=== PATIENT | male | born 1940 | race Caucasian/White ===

== ENCOUNTER 2022-07-16 17:51 | Inpatient (IN) | payer MEDICARE ==
[~2022-07-16] VITALS: Ht 167.6 cm; Wt 77.1 kg
[2022-07-16] MEDS ORDERED: BLOOD SUGAR DIAGNOSTIC 1 EACH STRIP IN ONE (20:30)
[2022-07-16] MEDS ORDERED: MAG HYDROX/AL HYDROX/SIMETH 30 ML UDC PO PRN (20:30)
[2022-07-16] MEDS ORDERED: MAGNESIUM HYDROXIDE 30 ML UDC PO PRN (20:30)
[2022-07-16] MEDS ORDERED: HYDR-3980 MT (20:40)
[2022-07-16] MEDS ORDERED: SUCR1TAB MT (20:40)
[2022-07-16] MEDS ORDERED: FINA5TAB11 MT (20:40)
[2022-07-16] MEDS ORDERED: TRAZ-257 (20:40)
[2022-07-16] MEDS ORDERED: DONE10TA44 MT (20:40)
[2022-07-16] MEDS ORDERED: AMLO-212 MT (20:40)
[2022-07-16] MEDS ORDERED: METH20TA PO (20:40)
[2022-07-16] MEDS ORDERED: CEPH500C2 PO (21:56)
[2022-07-16] MEDS ORDERED: BUPR300T52 PO (21:56)
[2022-07-16] MEDS ORDERED: LISI20TA30 PO (21:56)
[2022-07-16] MEDS ORDERED: TERA10CA4 PO (21:56)
[2022-07-16] MEDS ORDERED: NIFE-57 PO (21:56)
[2022-07-16] MEDS ORDERED: OMEP40CA21 PO (21:56)
[2022-07-16] MEDS ORDERED: GABA800T11 PO (21:56)
--- NOTE | 2022-07-16 23:15 | NUR ---
RN note: Paged MARV Dominguez for med reconciliation.
[2022-07-17] MEDS ORDERED: HYDROCODONE/APAP 10/325MG TABLET PO PRN ×2 (01:30→09:00)
[2022-07-17] MEDS ORDERED: GABAPENTIN 300 MG CAPSULE PO SCH (01:34)
[2022-07-17 03:26] VITALS: BP 143/70
--- NOTE | 2022-07-17 03:56 | NUR ---
Patient admitted to room 15 b via ambulance from [facility] due to overdose.Admission assessment done ,v/s taken same stable. Skin is intact,photo taken. Patient placed on a 5150 hold as per Md and placed on Suicide watch . Md called for orders and Meds given as ordered. Upon face to face assessment pt appears to be depress ,blunted affect ,cooperative ,no verbalization of thoughts and feelings.Patients rights reviewed and patient verbalized understandings of same.Pt resting in bed in no distress.
[2022-07-17 04:00] VITALS: BP 143/70
[2022-07-17] MEDS: LORAZEPAM 0.5 MG TABLET PO PRN ×2 (07:53→16:12)
[2022-07-17 08:00] VITALS: BP 176/90
[2022-07-17 09:14] LABS: CHOLESTEROL 157 mg/dL (<200); HDL CHOLESTEROL 70 mg/dL (40-60); LDL 75 mg/dL (0-99); TRIGLYCERIDES 52 mg/dL (30-150)
[2022-07-17 09:18] LABS: CREATININE 1.1 mg/dL (0.6-1.3)
--- NOTE | 2022-07-17 10:33 | NUR ---
Social Work Note/Substance Abuse Intervention: Patient was provided with a brief substance abuse intervention and referred to [facility] ([phone]), [facility] ([phone]), and [facility] ([phone]) for overdose on medication.
[2022-07-17] MEDS ORDERED: LACT1CAP71 PO (10:42)
[2022-07-17] MEDS ORDERED: CHOL100043 PO (10:42)
[2022-07-17] MEDS ORDERED: MULT-447 PO (10:42)
[2022-07-17] MEDS ORDERED: FERR325T23 PO (10:42)
[2022-07-17] MEDS: SUCRALFATE 1 G TABLET PO SCH ×2 (11:06→16:08)
[2022-07-17] MEDS: LISINOPRIL (20MG) 20 MG TABLET PO SCH (11:07)
[2022-07-17] MEDS: FINASTERIDE (5 MG) 5 MG TABLET PO SCH (11:07)
[2022-07-17] MEDS: DONEPEZIL 5 MG TABLET PO SCH (11:09)
[2022-07-17] MEDS: BUPROPION XL 150 MG TAB.ER.24 PO SCH (13:36)
[2022-07-17] MEDS: FLUOXETINE HCL 20 MG CAPSULE PO SCH (13:37)
--- NOTE | 2022-07-17 14:01 | NUR ---
BRADLEY Initial Discharge Note: Patient currently resides at home located at [address] [place] [address]; ([phone]). Patient would want to return back home. BRADLEY contacted pt's Magalie ([phone]) and discussed treatment/discharge plan. BRADLEY will work with the MD, family, and pt to help coordinate appropriate discharge.
--- NOTE | 2022-07-17 14:01 | NUR ---
BRADLEY Clinical Note: Pt placed on a 5150 hold for danger to self. Pt overdosed on ambien at home. Patient currently resides at home located at [address] [place] [address]; ([phone]). Patient would want to return back home. BRADLEY contacted pt's Magalie ([phone]) and discussed treatment/discharge plan.
--- NOTE | 2022-07-17 14:02 | NUR ---
BRADLEY Family Contact: BRADLEY contacted pt's Magalie ([phone]) and discussed treatment/discharge plan. Addendum: 07/17/22 at 1402 by BRADLEY DIETZ reported that pt has full support at home and has a underwriting service representative for pt at home. She stated that pt had episode of depression at home due to family loss.
--- NOTE | 2022-07-17 14:03 | NUR ---
Treatment Plan: Pt was angry and suspicious he refused to sign treatment plan.
[2022-07-17 16:00] VITALS: BP 161/70
[2022-07-17] MEDS: PANTOPRAZOLE 40 MG/PACK PACK PO SCH (16:08)
[2022-07-17 19:43] VITALS: BP 163/74
[2022-07-17] MEDS: TEMAZEPAM 7.5 MG CAPSULE PO PRN (21:33)
[2022-07-17] MEDS: GABAPENTIN 300 MG CAPSULE PO SCH (21:33)
[2022-07-17] MEDS: NIFEdipine XL (30MG) 30 MG TAB PO SCH (21:34)
[2022-07-17] MEDS: MIRTAZAPINE 15 MG TABLET PO SCH (21:35)
[2022-07-17] MEDS ORDERED: TERAZOSIN HCL 5 MG CAPSULE PO SCH (22:00)
[2022-07-18 06:43] VITALS: BP 163/74
[2022-07-18 08:00] VITALS: BP 148/76
[2022-07-18] MEDS: SUCRALFATE 1 G TABLET PO SCH ×2 (08:28→16:30)
[2022-07-18] MEDS: BUPROPION XL 150 MG TAB.ER.24 PO SCH (08:28)
[2022-07-18] MEDS: PANTOPRAZOLE 40 MG/PACK PACK PO SCH ×2 (08:29→16:30)
[2022-07-18] MEDS: FINASTERIDE (5 MG) 5 MG TABLET PO SCH (08:29)
[2022-07-18] MEDS: DONEPEZIL 5 MG TABLET PO SCH (08:29)
[2022-07-18] MEDS: LISINOPRIL (20MG) 20 MG TABLET PO SCH (08:29)
--- NOTE | 2022-07-18 10:00 | NUR ---
BRADLEY Coordination of Care: SW contacted pt's Psychiatrist, Dr. Sheikh ([phone]) ([phone]) and notified of his admission. SW attempted to make an appointment. He stated when pt discharges to contact back to make the appointment and to fax clinicals. SW gave brief information of pt's admission.
[2022-07-18] MEDS: FLUOXETINE HCL 20 MG CAPSULE PO SCH (12:32)
[2022-07-18] MEDS: ACETAMINOPHEN 325 MG TABLET PO PRN (15:13)
[2022-07-18 16:00] VITALS: BP 135/72
[2022-07-18 19:37] VITALS: BP 151/60
--- NOTE | 2022-07-18 19:50 | NUR ---
noc rn opening received patient in bed, a/ox3. no s/s of apparent distress in room air. no c/o at this time. will do Q15 visual checks and rounding with staff to ensure patient safety.
--- NOTE | 2022-07-18 20:06 | NUR ---
noc rn note patient asked for his Terazosin since he has not gotten a dose for today. Messaged Doctor Belkis for a ONE time order of Terazosin 15mg for tonight.
[2022-07-18] MEDS: MIRTAZAPINE 15 MG TABLET PO SCH (21:12)
[2022-07-18] MEDS: NIFEdipine XL (30MG) 30 MG TAB PO SCH (21:13)
[2022-07-18] MEDS: GABAPENTIN 300 MG CAPSULE PO SCH (21:13)
[2022-07-18] MEDS: TEMAZEPAM 7.5 MG CAPSULE PO PRN (21:13)
--- NOTE | 2022-07-18 21:13 | NUR ---
noc rn note patient request for sleeping medication. Given restoril 7.5 mg as ordered PRN. will re-assess.
[2022-07-18] MEDS ORDERED: TERAZOSIN HCL 5 MG CAPSULE PO ONE (22:00)
[2022-07-19 08:00] VITALS: BP 128/66
[2022-07-19] MEDS: LISINOPRIL (20MG) 20 MG TABLET PO SCH (08:21)
[2022-07-19] MEDS: SUCRALFATE 1 G TABLET PO SCH ×2 (08:21→16:31)
[2022-07-19] MEDS: DONEPEZIL 5 MG TABLET PO SCH (08:21)
[2022-07-19] MEDS: BUPROPION XL 150 MG TAB.ER.24 PO SCH (08:21)
[2022-07-19] MEDS: PANTOPRAZOLE 40 MG/PACK PACK PO SCH ×2 (08:21→16:31)
[2022-07-19] MEDS: FINASTERIDE (5 MG) 5 MG TABLET PO SCH (08:21)
[2022-07-19] MEDS: TERAZOSIN HCL 5 MG CAPSULE PO SCH (11:49)
[2022-07-19] MEDS: FLUOXETINE HCL 20 MG CAPSULE PO SCH (12:15)
[2022-07-19] MEDS: ACETAMINOPHEN 325 MG TABLET PO PRN (13:22)
--- NOTE | 2022-07-19 13:22 | NUR ---
RN NOTE PATIENT WITH C/O CHRONIC BACK PAIN, REQUESTED FOR TYLENOL. TYLENOL 650 MG PO GIVEN. WILL CONTINUE TO MONITOR AND ASSESS PATIENT.
[2022-07-19 16:00] VITALS: BP 108/44
--- NOTE | 2022-07-19 18:37 | NUR ---
RN NOTE PATIENT RESTING IN BED. NO SIGNS OF ACUTE DISTRESS NOTED. STABLE ON ROOM AIR, BREATHING EVEN AND UNLABORED. COMPLIANT WITH MEDICATIONS. PATIENT AMBULATORY WITH WALKER WITH STEADY GAIT. NOTED PATIENT DEPRESSED, WITHDRAWN, DENIES SI/HI. ALL NEEDS ANTICIPATED AND ATTENDED. SAFETY MEASURE MAINTAINED. WILL ENDORSE TO NEXT SHIFT FOR CONTINUITY OF CARE.
--- NOTE | 2022-07-19 19:40 | NUR ---
TEENA MARCELO OPENING NOTE RECEIVED PATIENT RESTING IN BED, AWAKE, ALERT AND ORIENTED X Addendum: 07/19/22 at 1957 by DONALD LIPSCOMB RN AFEBRILE AND NOT IN ANY FORM OF ACUTE DISTRESS. BREATHING EVEN AND NON LABORED. NO BEHAVIOR ISSUES NOTED AT THIS TIME. SAFETY MEASURES IN PLACE. KEPT BED IN LOCKED AND IN LOW POSITION. SIDE RAILS UP X2.
[2022-07-19 20:15] VITALS: BP 97/52
[2022-07-19] MEDS: MIRTAZAPINE 15 MG TABLET PO SCH (21:18)
[2022-07-19] MEDS: GABAPENTIN 300 MG CAPSULE PO SCH (21:18)
[2022-07-19] MEDS: NIFEdipine XL (30MG) 30 MG TAB PO SCH (21:36)
[2022-07-20 08:00] VITALS: BP 128/73
[2022-07-20] MEDS: BUPROPION XL 150 MG TAB.ER.24 PO SCH (08:43)
[2022-07-20] MEDS: PANTOPRAZOLE 40 MG/PACK PACK PO SCH ×2 (08:43→16:19)
[2022-07-20] MEDS: FINASTERIDE (5 MG) 5 MG TABLET PO SCH (08:43)
[2022-07-20] MEDS: SUCRALFATE 1 G TABLET PO SCH ×2 (08:43→16:19)
[2022-07-20] MEDS: DONEPEZIL 5 MG TABLET PO SCH (08:44)
[2022-07-20] MEDS: LISINOPRIL (20MG) 20 MG TABLET PO SCH (08:44)
--- NOTE | 2022-07-20 09:48 | NUR ---
Court Notification: SW attempted to contact pt's Magalie ([phone]) and left a voicemail of [phone].
--- NOTE | 2022-07-20 09:48 | NUR ---
Court Hearing: Patient's court hearing for 5250 was today and it was upheld for GD and danger to self.
--- NOTE | 2022-07-20 11:59 | NUR ---
BRADLEY Coordination of Care: SW contacted pt's Psychiatrist, Dr. Sheikh ([phone]) ([phone]) and notified that family will be seeing pt's psychiatrist at the [place], per Dr. Humphrey stating that family had stated requested that [facility]. BRADLEY spoke with Sandra and notified this.
[2022-07-20] MEDS: FLUOXETINE HCL 20 MG CAPSULE PO SCH (12:33)
[2022-07-20] MEDS: TERAZOSIN HCL 5 MG CAPSULE PO SCH (12:35)
--- NOTE | 2022-07-20 13:05 | NUR ---
BRADLEY Family Contact: SW contacted pt's Magalie ([phone]) and spoke with who stated that they will be following up with [place] psychiatrist Dr. Barnes and not the other psychiatrist Dr. Sheikh. SW notified to make an appointment she stated that she did not have the contact information. This automobile service writer will make the apt for pt.
--- NOTE | 2022-07-20 13:06 | NUR ---
[facility]: [facility]ADLEY contacted pt's clinic and spoke with medical pathology teacher Azeb and scheduled an appointment. BRADLEY scheduled with (Psychiatrist) Dr. Barnes at [address] [address]; ([phone]) on July 24 at 11AM.
--- NOTE | 2022-07-20 13:13 | NUR ---
EARLY ENTRY DISCHARGE 07/21/2022Sunday: Patient will discharge back home located at [address] [place] [address]; ([phone]). Patients Magalie ([phone]) who will pick him up at 1:30PM. Patient denies suicidal or homicidal ideation. Patient denies visual/auditory hallucinations. Pt will follow up with (Lead Cargo Mover) Dr. Yue Escoto located at [address] [facility], [address], [place] [address]; ([phone]). Pt will follow up with (Psychiatrist) Dr. Barnes at [address] [address]; ([phone]) on July 24 at 11AM. Patient presents with euthymic mood and congruent affect.
[2022-07-20 16:00] VITALS: BP 119/65
--- NOTE | 2022-07-20 19:30 | NUR ---
GPS RN NOTE, RECEIVED PATIENT AWAKE AND IN BED, PATIENT DENIES PAIN AT THIS TIME. PATIENT IS DISPLAYING NO S/S OF APPARENT DISTRESS AT THIS TIME. PATIENT BREATHING IS UNLABORED WITH EQUAL RISE AND FALL OF THE CHEST. PATIENT IS ALERT AND ORIENTED X 3 ON ROOM AIR WITH A SPO2 98%. PATIENT IS COMPLIANT WITH MEDICATIONS, CALM, POLITE, AND COOPERATIVE. PATIENT DENIES SUICIDAL AND HOMICIDAL IDEATIONS AT THIS TIME. PATIENT ASSISTED WITH TURNING AND REPOSITIONING Q2HR AND PRN FOR COMFORT AND CIRCULATION. PATIENT HAS NO NEEDS AT THIS TIME. PATIENT EDUCATED ON THE USE OF THE CALL CARSON. PATIENT BED SIDE RAILS UP X 2 FOR SAFETY. PATIENT BED IS LOCKED AND LOW. WILL CONTINUE TO MONITOR THIS PATIENT Q15 MINUTES WITH THE HELP OF STAFF TO MAINTAIN SAFETY.
[2022-07-20 20:00] VITALS: BP 137/64
[2022-07-20] MEDS: MIRTAZAPINE 15 MG TABLET PO SCH (21:13)
[2022-07-20] MEDS: GABAPENTIN 300 MG CAPSULE PO SCH (21:13)
[2022-07-20] MEDS: NIFEdipine XL (30MG) 30 MG TAB PO SCH (21:14)
[2022-07-21 08:00] VITALS: BP 138/69
[2022-07-21] MEDS: SUCRALFATE 1 G TABLET PO SCH (08:44)
[2022-07-21] MEDS: LISINOPRIL (20MG) 20 MG TABLET PO SCH (08:44)
[2022-07-21] MEDS: BUPROPION XL 150 MG TAB.ER.24 PO SCH (08:44)
[2022-07-21] MEDS: PANTOPRAZOLE 40 MG/PACK PACK PO SCH (08:44)
[2022-07-21] MEDS: DONEPEZIL 5 MG TABLET PO SCH (08:44)
[2022-07-21] MEDS: FINASTERIDE (5 MG) 5 MG TABLET PO SCH (08:46)
[2022-07-21] MEDS: TERAZOSIN HCL 5 MG CAPSULE PO SCH (12:19)
[2022-07-21 12:21] VITALS: BP 148/68
[2022-07-21] MEDS ORDERED: FLUOXETINE HCL 20 MG CAPSULE PO SCH (13:00)
--- NOTE | 2022-07-21 14:05 | NUR ---
RN- DISCHARGE NOTES PATIENT HAD A DISCHARGE FROM DR. SELF ( PSYCHIATRIST) DR. OLSON ( PHOTOGRAPHIC PROCESS ATTENDANT) MEDICALLY CLEARED PATIENT FOR DISCHARGE.PATIENT DID NOT VERBALIZE SI/HI,DENIES VISUAL/AUDITORY HALLUCINATIONS AT THE TIME OF DISCHARGE. PATIENT SIGN ALL DISCHARGE PAPERS WITH UNDERSTANDING.INSTRUCTED PATIENT TO GO TO THE NEAREST EMERGENCY ROOM OR CALL 911 IN CASE OF EMERGENCY, ALSO INSTRUCTED TO FOLLOW UP WITH PCP ON OR NEEDED. 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 VITAL SIGNS BP 130/68,P 64, R 18 TEMP. 97.8 AND O2 SAT 98 % RA.
== END 2022-07-21 14:05 | disposition home or self-care (01) | DRG 885 ==
LOC: GPS 19:06
PROVIDERS: ADMIT Psychiatry & Neurology Psychosomatic Medicine; ATTEND Student in an Organized Health Care Education/Training Program
DX: F33.2 Major depressive disorder, recurrent severe without psychotic features (principal); R45.851 Suicidal ideations; F29 Unspecified psychosis not due to a substance or known physiological condition; F41.9 Anxiety disorder, unspecified; F19.90 Other psychoactive substance use, unspecified, uncomplicated; R41.9 Unspecified symptoms and signs involving cognitive functions and awareness; R53.1 Weakness; R27.8 Other lack of coordination; Z91.81 History of falling; M19.90 Unspecified osteoarthritis, unspecified site; G89.4 Chronic pain syndrome; G47.00 Insomnia, unspecified; G62.9 Polyneuropathy, unspecified; K21.9 Gastro-esophageal reflux disease without esophagitis; N40.0 Benign prostatic hyperplasia without lower urinary tract symptoms; Z79.899 Other long term (current) drug therapy; Z88.6 Allergy status to analgesic agent; Z88.8 Allergy status to other drugs, medicaments and biological substances; Z91.048 Other nonmedicinal substance allergy status
CPT/HCPCS: 36415; 80061-TC; 82565-TC; 87081-TC